=== PATIENT | male | born 1960 | race Caucasian/White ===

== ENCOUNTER 2018-08-03 16:21 | Emergency (ER) | payer OTHER, SELFPAY ==
[2018-08-03 16:26] VITALS: BP 148/82; PULSE 112; RESP 28; TEMP 36.3; O2SAT 94; BMI 32.5
--- NOTE | 2018-08-03 17:22 | PC.NURSE ---
rolled off high bed this morning, landing on the concrete, now with lumbar pain, worsen with movement, with chronic sciatica pain , right leg posterior ends to the heel. denies bladder or bowel issue. denies head injurys, denies neck pain. has been using ice packed and tylenol. hx of lumbar injury.
--- NOTE | 2018-08-03 17:26 | ED.BACK ---
HPI - Back Pain/Injury <Jayla Bansal PA-C - Last Filed: 08/03/18 22:00> General Chief Complaint: Back Pain/Injury Stated Complaint: FALL Time Seen by Provider: 08/03/18 17:12 Source: patient Mode of arrival: ambulatory Limitations: no limitations History of Present Illness HPI Narrative: This 58-year-old male rolled out of a tall bed, perhaps a few feet off of the ground, early this morning. His notes that he tends to sleep at the edge of the bed, and she found him flat on his back. He has had pain since then, mainly in his low back. He states that he took some ibuprofen at home around noontime or so but pain is not significantly better. 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 He denies any other injury, no headache or neck pain. He denies any new weakness or paresthesia in his extremities. He denies any groin numbness and has been urinating normally. He has difficulty walking secondary to pain, was able to walk with a cane. Related Data Home Medications Medication Instructions Recorded Confirmed atorvastatin 40 mg PO BEDTIME 08/03/18 08/03/18 glipizide 5 mg PO BIDAC 08/03/18 08/03/18 insulin NPH isoph U-100 human 20 units SUBCUT BID 08/03/18 08/03/18 [Humulin N NPH U-100 Insulin] lisinopril 10 mg PO DAILY 08/03/18 08/03/18 metformin 1,000 mg PO BIDWM 08/03/18 08/03/18 trazodone 50 - 150 mg PO BEDTIME 08/03/18 08/03/18 Previous Rx's Medication Instructions Recorded oxycodone-acetaminophen 1 tab PO Q6H PRN #12 tab 08/03/18 Allergies Allergy/AdvReac Type Severity Reaction Status Date / Time Sulfa (Sulfonamide Allergy Verified 08/03/18 16:26 Antibiotics) Review of Systems <Jayla Bansal PA-C - Last Filed: 08/03/18 22:00> Review of Systems All systems reviewed & are unremarkable except as noted in HPI and below PFSH <Jayla Bansal PA-C - Last Filed: 08/03/18 22:00> Comment: Quit EtOH 10 years ago, former smoker Exam <Jayla Bansal PA-C - Last Filed: 08/03/18 22:00> Narrative Exam Narrative: GENERAL APPEARANCE: Patient appears uncomfortable balancing on the edge of the bed, in NAD PULMONARY: Lungs clear to auscultation bilaterally CV: Regular rhythm regular without murmur, normal S1 and S2, no S3 or S4 MUSCULOSKELETAL: Moderate tenderness at the L1 level, more tenderness at L4/L5 directly over the spine. Mild tenderness throughout the lumbar musculature. No cervical or thoracic point tenderness. No sacral tenderness. Limited trunk range of motion secondary to tenderness. Lower extremity strength 5/5 bilateral hip flexors, knee extensors, foot plantar flexion. Positive right modified straight leg raise NEUROLOGIC: Lower extremity sensation grossly intact Initial Vital Signs Initial Vital Signs: Vital Signs Temperature 97.4 F L 08/03/18 16:26 Pulse Rate 112 H 08/03/18 16:26 Respiratory Rate 28 H 08/03/18 16:26 Blood Pressure 148/82 H 08/03/18 16:26 Pulse Oximetry 94 08/03/18 16:26 <Mahendra Conway DO - Last Filed: 08/03/18 23:43> Initial Vital Signs Initial Vital Signs: Vital Signs Temperature 97.4 F L 08/03/18 16:26 Pulse Rate 112 H 08/03/18 16:26 Respiratory Rate 28 H 08/03/18 16:26 Blood Pressure 148/82 H 08/03/18 16:26 Pulse Oximetry 94 08/03/18 16:26 Course <DILIP Mcneil Last Filed: 08/03/18 22:00> Additional Information: Patient continued to have significant pain, improved following Dilaudid. He had difficulty walking with a cane that he brought, however we gave him a walker and he was able to ambulate comfortably through the department with this. He was given a prescription for higher dose oxycodone/acetaminophen, which he has taken in the past, and feels like he will be able to rest at home. He was actually scheduled to see his PCP today regarding his back and referral to a specialist, and he will call 1st thing in the morning to reschedule this in the next couple of days. We talked about monitoring for new symptoms such as extremity paresthesia, weakness, groin numbness or urinary retention and he agrees to return if any. Orders Ordered: ED Orders 08/03/18 18:10 CT lumbar spine wo con Stat Discontinued Medications Cyclobenzaprine HCl (Flexeril) 10 mg PO NOW ONE Stop: 08/03/18 17:38 Last Admin: 08/03/18 17:43 Dose: 10 mg Hydromorphone HCl (Dilaudid) 1 mg SUBCUT Q4H PRN PRN Reason: Pain, Severe (7-10) Last Admin: 08/03/18 19:29 Dose: 1 mg Ibuprofen (Advil) 800 mg PO NOW ONE Stop: 08/03/18 17:38 Last Admin: 08/03/18 17:43 Dose: 800 mg Oxycodone/Acetaminophen (Percocet 5/325) 2 tab PO NOW ONE Stop: 08/03/18 17:38 Last Admin: 08/03/18 17:43 Dose: 2 tab Vital Signs - 8 hr 08/03/18 16:26 08/03/18 18:26 08/03/18 20:26 Temperature 97.4 F L Pulse Rate 112 H 80 77 Respiratory Rate 28 H 16 20 Blood Pressure 148/82 H Blood Pressure [Left Arm] 132/92 H 130/74 Pulse Oximetry 94 93 94 <Mahendra Conway, - Last Filed: 08/03/18 23:43> Orders Ordered: ED Orders 08/03/18 18:10 CT lumbar spine wo con Stat Discontinued Medications Cyclobenzaprine HCl (Flexeril) 10 mg PO NOW ONE Stop: 08/03/18 17:38 Last Admin: 08/03/18 17:43 Dose: 10 mg Hydromorphone HCl (Dilaudid) 1 mg SUBCUT Q4H PRN PRN Reason: Pain, Severe (7-10) Last Admin: 08/03/18 19:29 Dose: 1 mg Ibuprofen (Advil) 800 mg PO NOW ONE Stop: 08/03/18 17:38 Last Admin: 08/03/18 17:43 Dose: 800 mg Oxycodone/Acetaminophen (Percocet 5/325) 2 tab PO NOW ONE Stop: 08/03/18 17:38 Last Admin: 08/03/18 17:43 Dose: 2 tab Vital Signs - 8 hr 08/03/18 16:26 12/18/18 18:26 08/03/18 20:26 Temperature 97.4 F L Pulse Rate 112 H 80 77 Respiratory Rate 28 H 16 20 Blood Pressure 148/82 H Blood Pressure [Left Arm] 132/92 H 130/74 Pulse Oximetry 94 93 94 Discharge Plan Departure Patient Disposition: Home Clinical Impression: Lumbar contusion, Sciatica, Degenerative disc disease Discharge Date/Time: 08/03/18 20:39 Interventions: ED Discharge Assessment Last Done: 08/03/18 20:37 Instructions: DI for Low Back Pain, DI for Sciatica Activity Restrictions/Additional Instructions: Continue ice and ibuprofen as needed. You can take the oxycodone/acetaminophen that you have used in the past in addition to this as needed for pain. Remember that this can make you sleepy and not to drive. Please use the walker to help with pain and support until you are better. The fall onto your back likely exacerbated your arthritis/wear and tear disease. Your sciatica does not seem worse now, however as we talked about you should return to the ED if you have any acutely worsening or new symptoms such as weakness or numbness in her leg, difficulty urinating or numbness in the groin. Please follow-up with your PCP in the next day or 2 for recheck and to talk about a referral to a specialist as you were planning Prescriptions: New oxycodone-acetaminophen 10-325 mg tablet 1 tab PO Q6H PRN (Reason: acute spine pain) Qty: 12 RF: 0 No Action atorvastatin 40 mg tablet 40 mg PO BEDTIME RF: 0 trazodone 50 mg tablet 50 - 150 mg PO BEDTIME RF: 0 metformin 1,000 mg tablet 1,000 mg PO BIDWM RF: 0 lisinopril 10 mg tablet 10 mg PO DAILY RF: 0 insulin NPH isoph U-100 human [Humulin N NPH U-100 Insulin] 100 unit/mL suspension 20 units subcut BID RF: 0 glipizide 5 mg tablet 5 mg PO BIDAC RF: 0 Referrals: [facility], primary care [Other] <Mahendra Conway DO - Last Filed: 08/03/18 23:43> [facility] ED Attending Simón Attestation: I was available for consultation during this patient's emergency department encounter
[2018-08-03] MEDS: OXYCODONE/ACETAMINOPHEN 5/325 TABLET 2 TAB PO (17:43)
[2018-08-03] MEDS: CYCLOBENZAPRINE 10 MG TABLET PO (17:43)
[2018-08-03] MEDS: IBUPROFEN 400 MG TABLET 800 MG PO (17:43)
--- NOTE | 2018-08-03 18:10 | DI.CT.S_ITS ---
PROCEDURE: CT LUMBAR SPINE WO CON INDICATIONS: lumbar pain (most L4/5) s/p fall, h/o spine surgery TECHNIQUE: Noncontrast 3 mm thick sections acquired from the T12 level to the sacrum. Sagittal and coronal reformats were constructed. For radiation dose reduction, the following was used: automated exposure control. COMPARISON: None. FINDINGS: Image quality: Excellent. Bones: There is trace retrolisthesis at L5-S1. Spinal alignment is otherwise unremarkable. Mild degenerative changes are present throughout the lumbar spine including small osteophytes and endplate Schmorl's nodes. No acute wedge compression deformities. No fractures or dislocations. Trace vacuum disc phenomenon is present at L5-S1. Intervertebral disc height is otherwise preserved. No canal stenosis of lumbar spine. There is moderate to severe right L5-S1 neuroforaminal stenosis and mild left L5-S1 foraminal narrowing. No other neuroforaminal stenosis of lumbar spine. Soft tissues: No retroperitoneal masses or hematomas. Visualized aorta is normal in caliber. There are scattered atheromatous calcifications throughout the aorta and iliac arteries bilaterally. Punctate calcifications are present throughout the pancreas suggesting prior pancreatitis. The appendix is thin walled and gas filled. IMPRESSION: 1. Degenerative change. No acute lumbar spine injury. 2. No acute intra-abdominal findings. Normal appendix. 3. Findings suspicious for prior pancreatitis. 4. Moderate right and mild left L5-S1 foraminal stenosis. No canal stenosis of lumbar spine. Dictated by: Natalia Barrett M.D. on 08/03/2018 at 18:53 Approved by: Natalia Barrett M.D. on 08/03/2018 at 18:57
[2018-08-03 18:26] VITALS: BP 132/92; PULSE 80; RESP 16; O2SAT 93
[2018-08-03] MEDS: HYDROMORPHONE 2 MG INJ 1 MG SUBCUT (19:29)
[2018-08-03 20:26] VITALS: BP 130/74; PULSE 77; RESP 20; O2SAT 94
== END 2018-08-03 20:39 | disposition home or self-care (01) ==
PROVIDERS: Emergency Provider Internal Medicine
DX: S30.0XXA Contusion of lower back and pelvis, initial encounter (principal); M54.30 Sciatica, unspecified side; W06.XXXA Fall from bed, initial encounter
CPT/HCPCS: 72131; 99283; 99284; J1170

== ENCOUNTER → 2025-02-01 08:23 | Outpatient (CLI) | payer MEDICARE, SELFPAY ==
--- NOTE | 2025-02-01 08:27 | DI.US.S_ITS ---
PROCEDURE: US ABD AORTA ANEURYSM SCREEN INDICATIONS: AAA SCREENING TECHNIQUE: Real time scanning was performed of the aorta and iliac arteries, with image documentation. COMPARISON: Prior ultrasound abdomen 07/23/2018 report, images not available. FINDINGS: Aorta: Proximal aortic diameter measures 2.9 cm unchanged from prior report. Mid-aorta , distal aorta, left common iliac artery not visualized due to overlying bowel gas, per notes. Iliac arteries: Right common iliac artery measures 1.1 cm with vascular calcifications. IMPRESSION: Limited exam. Proximal aorta 2.9 cm unchanged. [id number] year follow-up ultrasound could be considered. If symptoms persist or worsen, or there is high clinical suspicion of abdominal or aortic abnormality, CT could be performed. Dictated by: Fidel Tyson M.D. on 02/01/2025 at 9:42 Approved by: Fidel Tyson M.D. on 02/01/2025 at 9:44
== END ==
DX: Z13.6 Encounter for screening for cardiovascular disorders (principal)
CPT/HCPCS: 76706